=== PATIENT | female | born 1995 | race American Indian/Alaskan Native ===

== ENCOUNTER 2021-02-03 23:12 | Emergency (ER) | payer SELFPAY ==
--- NOTE | 2021-02-03 23:44 | Event Note ---
ED Screening Note ED Screening Note: 25-year-old female with past medical history of recurrent gastritis for the last 2-year presents emerged department complaining of another flareup. States she is having some some vomiting, diarrhea and nausea and seeks treatment. No hemoptysis, no hematemesis no hematochezia no fever, chills, sweats. This initial assessment/diagnostic orders/clinical plan/treatment(s) is/are subject to change based on patients health status, clinical progression and re- assessment by fellow clinical providers in the ED. Further treatment and workup at subsequent clinical providers discretion. Patient/guardian urged not to elope from the ED as their condition may be serious if not clinically assessed and managed. Initial orders include: Labs
[2021-02-03] MEDS ORDERED: ONDANSETRON 4 MG ODT TAB PO ONE (23:45)
[2021-02-03] MEDS ORDERED: HYOSCYAMINE SUBL 0.125 MG TAB SL ONE (23:45)
[2021-02-04] MEDS ORDERED: DICYCLOMINE 20 MG/2 ML INJ IM ONE (00:35)
[2021-02-04] MEDS ORDERED: SODIUM CHLORIDE 0.9% 1000 ML 1,000 ML IV ONE (00:35)
[2021-02-04] MEDS ORDERED: ONDANSETRON 4 MG/2 ML INJ IV ONE ×2 (00:35→02:26)
[2021-02-04] MEDS ORDERED: FAMOTIDINE 20 MG/2 ML INJ IV ONE (00:35)
[2021-02-04 01:08] LABS: Alanine Aminotransferase 10 units/L (7-56); BUN/Creatinine Ratio 18; Bilirubin,Direct 0.2 mg/dL (0-0.2); Blood Urea Nitrogen 11 mg/dL (7-17); Calcium 9.1 mg/dL (8.4-10.2)
[2021-02-04 01:09] LABS: Albumin 4.5 g/dL (3.9-5)
[2021-02-04 01:23] LABS: Hematocrit 36.2 % (30.3-42.9); Hemoglobin 11.5 gm/dl (10.1-14.3); Mean Corpuscular HGB Conc 32 % (30-34); Mean Corpuscular Volume 86 fl (79-97)
[2021-02-04 01:24] LABS: Lymphocytes # (Auto) 0.3 K/mm3 (1.2-5.4); Lymphocytes % (Auto) 2.2 % (13.4-35.0); Mean Platelet Volume 10.1 fl (6-12); Monocytes # (Auto) 0.4 K/mm3 (0.0-0.8); Monocytes % (Auto) 2.9 % (0.0-7.3); Platelet Count 284 K/mm3 (140-440); Red Cell Distribution Width 13.8 % (13.2-15.2)
[2021-02-04] MEDS ORDERED: METOCLOPRAMIDE 10 MG/2 ML INJ IV ONE (01:41)
[2021-02-04] MEDS ORDERED: D5W/0.9% NACL 1,000 ML IV SCH (02:00)
--- NOTE | 2021-02-04 02:01 | Emergency Department Report ---
ED Abdominal Pain HPI - General Chief Complaint: Abdominal Pain Stated Complaint: EMESIS Time Seen by Provider: 02/04/21 00:27 Source: patient Mode of arrival: Ambulatory Limitations: No Limitations - History of Present Illness Initial Comments: Patient is a 25-year-old F Pan[place]ian female who is presenting with nausea vomiting diarrhea. Patient states she has had episodes of nausea vomiting in the past and was diagnosed with gastritis. Patient states for the last 24 hours been unable to keep anything down. She has some crampy diffuse abdominal pain especially when she is about to vomit. Patient denies cough cold congestion fevers or chills. Severity scale (0 -10): 6 Quality: cramping Consistency: intermittent Improves With: nothing Worsens With: nothing Associated Symptoms: nausea, vomiting, diarrhea, chills. denies: fever, constipation, dysuria, hematemesis, hematochezia, melena, hematuria, anorexia - Related Data Previous Rx's Medication Instructions Recorded Last Taken Type Ondansetron [Zofran Odt] 4 mg PO Q8HR #10 tab.rapdis 02/04/21 Unknown Rx Allergies Allergy/AdvReac Type Severity Reaction Status Date / Time No Known Allergies Allergy Verified 02/04/21 01:44 ED Review of Systems ROS: Stated complaint: EMESIS Other details as noted in HPI Comment: All other systems reviewed and negative ED Past Medical Hx - Past Medical History Previous Medical History?: Yes Additional medical history: gastritis - Surgical History Past Surgical History?: Yes Additional Surgical History: left hand - Social History Smoking Status: Current Every Day Smoker Substance Use Type: None - Medications Home Medications: Home Medications Medication Instructions Recorded Confirmed Last Taken Type Ondansetron [Zofran Odt] 4 mg PO Q8HR #10 tab.rapdis 02/04/21 Unknown Rx ED Physical Exam - General Limitations: No Limitations General appearance: alert, in no apparent distress - Head Head exam: Present: atraumatic, normocephalic - Eye Eye exam: Present: normal appearance - ENT ENT exam: Present: mucous membranes moist - Neck Neck exam: Present: normal inspection - Respiratory Respiratory exam: Present: normal lung sounds bilaterally. Absent: respiratory distress, wheezes, rales - Cardiovascular Cardiovascular Exam: Present: regular rate, normal rhythm, normal heart sounds. Absent: systolic murmur, diastolic murmur, rubs, gallop - GI/Abdominal GI/Abdominal exam: Present: soft, tenderness (difuse), normal bowel sounds. Absent: distended, guarding, rebound, rigid - Extremities Exam Extremities exam: Present: normal inspection - Back Exam Back exam: Present: normal inspection - Neurological Exam Neurological exam: Present: alert, oriented X3 - Psychiatric Psychiatric exam: Present: normal affect, normal mood - Skin Skin exam: Present: warm, dry, intact, normal color. Absent: rash ED Course Vital Signs 02/03/21 02/04/21 02/04/21 23:39 01:12 01:15 Temperature 97.8 F Pulse Rate 71 53 L 56 L Respiratory 20 12 10 L Rate Blood Pressure 161/106 144/68 O2 Sat by Pulse 99 100 100 Oximetry 02/04/21 02/04/21 02/04/21 01:31 01:45 02:01 Temperature Pulse Rate 60 74 61 Respiratory 16 15 22 Rate Blood Pressure 144/68 124/80 124/80 O2 Sat by Pulse 100 100 100 Oximetry 02/04/21 02/04/21 02/04/21 02:25 02:31 02:45 Temperature Pulse Rate 74 66 68 Respiratory 12 29 H 26 H Rate Blood Pressure 138/58 153/72 O2 Sat by Pulse 98 98 98 Oximetry 02/04/21 03:01 Temperature Pulse Rate 73 Respiratory 15 Rate Blood Pressure 124/80 O2 Sat by Pulse 100 Oximetry - Reevaluation(s) Reevaluation #1: 02/04/21 02:00 After the patient received approximately 500 cc of fluid and Zofran Pepcid she seemed to be resting comfortably. I woke the patient up to ask her to straighten out her arm to let the fluids going a little bit fast and she began vomiting uncontrollably for approximately 2 minutes straight. Patient given a dose of Reglan and because the patient was is still complaining of some abdominal discomfort CT of the abdomen pelvis has been ordered. White count is slightly elevated but likely secondary demargination. Will rule out surgical conditions needing intervention with CT. Reevaluation #2: 02/04/21 02:54 Patient admits to marijuana use and likely has cyclical vomiting syndrome. ED Medical Decision Making - Lab Data Result diagrams: 02/03/21 23:51 02/03/21 23:51 Lab Results 03/25/21 03/25/21 03/25/21 Range/Units 23:51 23:51 23:51 WBC 12.6 H (4.5-11.0) K/mm3 RBC 4.20 (3.65-5.03) M/mm3 Hgb 11.5 (10.1-14.3) gm/dl Hct 36.2 (30.3-42.9) % MCV 86 (79-97) fl MCH 28 (28-32) pg MCHC 32 (30-34) % RDW 13.8 (13.2-15.2) % Plt Count 284 (140-440) K/mm3 Lymph % (Auto) 2.2 L (13.4-35.0) % [place] % (Auto) 2.9 (0.0-7.3) % Eos % (Auto) 0.0 (0.0-4.3) % Baso % (Auto) 0.0 (0.0-1.8) % Lymph # (Auto) 0.3 L (1.2-5.4) K/mm3 [place] # (Auto) 0.4 (0.0-0.8) K/mm3 Eos # (Auto) 0.0 (0.0-0.4) K/mm3 Baso # (Auto) 0.0 (0.0-0.1) K/mm3 Add Manual Diff Complete Seg Neutrophils % 94.9 H (40.0-70.0) % Seg Neutrophils # 12.0 H (1.8-7.7) K/mm3 Sodium 138 (137-145) mmol/L Potassium 3.9 (3.6-5.0) mmol/L Chloride 102.4 (98-107) mmol/L Carbon Dioxide 19 L (22-30) mmol/L Anion Gap 21 mmol/L BUN 11 (7-17) mg/dL Creatinine 0.6 (0.6-1.2) mg/dL Estimated GFR > 60 ml/min BUN/Creatinine Ratio 18 % Glucose 155 H (65-100) mg/dL Calcium 9.1 (8.4-10.2) mg/dL Total Bilirubin 0.50 (0.1-1.2) mg/dL Direct Bilirubin 0.2 (0-0.2) mg/dL Indirect Bilirubin 0.3 mg/dL AST 14 (5-40) units/L ALT 10 (7-56) units/L Alkaline Phosphatase 79 (35-129) units/L Total Protein 8.5 H (6.3-8.2) g/dL Albumin 4.5 (3.9-5) g/dL Albumin/Globulin Ratio 1.1 % Lipase 12 L (13-60) units/L HCG, Qual Negative (Negative) Urinalysis showed no discrete trace ketones small amount of blood but no evidence of any infection. - Radiology Data [facility] [address] [id number] Cat Scan Report Signed Patient: ZARINA TAVAREZ MR#: [id number] : 1995 Acct:[id number] Age/Sex: 25 / F ADM Date: 02/03/21 Loc: ED Attending Dr: Ordering Physician: HECTOR PORTER MD Date of Service: 02/04/21 Procedure(s): CT abdomen pelvis w con Accession Number(s): [id number] cc: HECTOR PORTER MD CT ABDOMEN AND PELVIS WITH CONTRAST INDICATION: Patient complains of diffuse abd pain with nausea and vomiting. History of gastritis TECHNIQUE: Axial CT images were obtained through the abdomen and pelvis after 100 cc IV contrast. All CT scans at this location are performed using CT dose reduction for ALARA by means of automated exposure control. COMPARISON: None available. FINDINGS: LOWER CHEST: No significant abnormality. LIVER: No significant abnormality. GALLBLADDER: No significant abnormality. BILE DUCTS: No significant abnormality. PANCREAS: No significant abnormality. SPLEEN: No significant abnormality. ADRENALS: No significant abnormality. RIGHT KIDNEY and URETER: No significant abnormality. LEFT KIDNEY and URETER: No significant abnormality. STOMACH and SMALL BOWEL: No significant abnormality. COLON: No significant abnormality. APPENDIX: Normal PERITONEUM: No free fluid. No free air. No fluid collection. LYMPH NODES: No significant adenopathy. AORTA and ARTERIES: No significant abnormality. IVC and VEINS: No significant abnormality. URINARY BLADDER: No significant abnormality. REPRODUCTIVE ORGANS: No significant abnormality. ADDITIONAL FINDINGS: None. SKELETAL SYSTEM: No significant abnormality. IMPRESSION: 1. No significant abnormality. Signer Name: Michele Quarles MD Signed: 02/04/2021 2:44 AM Workstation Name: [id number] Transcribed By: TL Dictated By: Michele Quarles MD Electronically Authenticated By: Michele Quarles MD Signed Date/Time: 02/04/21 0244 - Medical Decision Making Patient's been cautioned to stop her marijuana use. States that this is something it was occurring regularly while she was living in [place]. She has already been told that she needs to stop smoking marijuana and this is likely the cause of her nausea and vomiting. Patient did calm down some after receiving Geodon. Critical care attestation.: If time is entered above; I have spent that time in minutes in the direct care of this critically ill patient, excluding procedure time. ED Disposition Clinical Impression: Cyclic vomiting syndrome, Marijuana abuse Disposition: DC-01 TO HOME OR SELFCARE Is pt being admited?: No Does the pt Need Aspirin: No Condition: Stable Instructions: Abdominal Pain (ED), Nausea and Vomiting, Adult, [id number], Cannabinoid Hyperemesis Syndrome Referrals: [facility] [Provider Group] - 3-5 Days Time of Disposition: 04:03
[2021-02-04] MEDS ORDERED: ZIPRASIDONE MESYLATE 20 MG VIAL IM ONE (02:38)
--- NOTE | 2021-02-04 02:49 | Cat Scan Report ---
CT ABDOMEN AND PELVIS WITH CONTRAST INDICATION: Patient complains of diffuse abd pain with nausea and vomiting. History of gastritis TECHNIQUE: Axial CT images were obtained through the abdomen and pelvis after 100 cc IV contrast. All CT scans at this location are performed using CT dose reduction for ALARA by means of automated exposure contr ol. COMPARISON: None available. FINDINGS: LOWER CHEST: No significant abnormality. LIVER: No significant abnormality. GALLBLADDER: No significant abnormality. BILE DUCTS: No significant abnormality. PANCREAS: No significant abnormality. SPLEEN: No significant abnormality. ADRENALS: No significant abnormality. RIGHT KIDNEY and URETER: No significant abnormality. LEFT KIDNEY and URETER: No significant abnormality. STOMACH and SMALL BOWEL: No significant abnormality. COLON: No significant abnormality. APPENDIX: Normal PERITONEUM: No free fluid. No free air. No fluid collection. LYMPH NODES: No significant adenopathy. AORTA and ARTERIES: No significant abnormality. IVC and VEINS: No significant abnormality. URINARY BLADDER: No significant abnormality. REPRODUCTIVE ORGANS: No significant abnormality. ADDITIONAL FINDINGS: None. SKELETAL SYSTEM: No significant abnormality. IMPRESSION: 1. No significant abnormality. Signer Name: Michele Quarles MD Signed: 02/04/2021 2:44 AM Workstation Name: [id number]
[2021-02-04 04:19] VITALS: BP 141/75
[2021-02-04 05:37] LABS: Color,Urine Yellow (Yellow)
[2021-02-04 05:38] LABS: Bilirubin,Urine Negative (Negative); Blood,Urine Small (Negative); Urobilinogen,Urine < 2.0 mg/dL (<2.0)
[2021-02-04 05:39] LABS: Mucus,Urine 1+ /HPF
== END 2021-02-04 04:15 | disposition home or self-care (01) ==
LOC: ED 23:12
DX: R11.15 Cyclical vomiting syndrome unrelated to migraine (principal); F12.10 Cannabis abuse, uncomplicated; Z79.899 Other long term (current) drug therapy
CPT/HCPCS: 36415; 74177; 80048; 80076; 81001; 83690; 84703; 85025; 96361; 96372; 96374; 96375; 96376; 99284; J0500; J2405; J2765; J3486; J7030; J7042; Q9967; Q0162

== ENCOUNTER 2021-02-05 21:29 | Emergency (ER) | payer OTHER ==
[2021-02-05] MEDS ORDERED: diphenhydrAMINE 50 MG/ML VIAL IV ONE (22:04)
[2021-02-05] MEDS ORDERED: FAMOTIDINE 20 MG/2 ML INJ IV ONE (22:04)
[2021-02-05] MEDS ORDERED: SODIUM CHLORIDE 0.9% 1000 ML 1,000 ML IV ONE (22:04)
[2021-02-05] MEDS ORDERED: METOCLOPRAMIDE 10 MG/2 ML INJ IV ONE (22:04)
[2021-02-05 22:08] LABS: Basophils # (Auto) 0.1 K/mm3 (0.0-0.1); Basophils % (Auto) 0.7 % (0.0-1.8); Hematocrit 38.7 % (30.3-42.9); Hemoglobin 12.9 gm/dl (10.1-14.3); Lymphocytes # (Auto) 1.9 K/mm3 (1.2-5.4); Lymphocytes % (Auto) 15.5 % (13.4-35.0); Mean Corpuscular HGB Conc 33 % (30-34); Mean Corpuscular Volume 85 fl (79-97); Monocytes # (Auto) 1.2 K/mm3 (0.0-0.8); Monocytes % (Auto) 10.2 % (0.0-7.3); Platelet Count 340 K/mm3 (140-440); Red Blood Count 4.55 M/mm3 (3.65-5.03); Red Cell Distribution Width 14.2 % (13.2-15.2)
[2021-02-05 22:23] LABS: Alanine Aminotransferase 10 units/L (7-56); Albumin 4.7 g/dL (3.9-5); BUN/Creatinine Ratio 15; Blood Urea Nitrogen 12 mg/dL (7-17); Calcium 9.7 mg/dL (8.4-10.2); Hemolysis Index 27
[2021-02-05] MEDS ORDERED: POTASSIUM CHLORIDE ER 20 MEQ TAB PO ONE (23:11)
[2021-02-06] MEDS ORDERED: METOCLOPRAMIDE 10 MG/2 ML INJ IV ONE ×2 (01:30→04:18)
[2021-02-06] MEDS ORDERED: POTASSIUM CHLORIDE ER 20 MEQ TAB PO ONE (01:30)
[2021-02-06] MEDS ORDERED: SODIUM CHLORIDE 0.9% 1000 ML 1,000 ML IV ONE ×2 (01:30→02:28)
[2021-02-06] MEDS ORDERED: diphenhydrAMINE 50 MG/ML VIAL IV ONE ×2 (01:30→04:18)
[2021-02-06] MEDS ORDERED: FAMOTIDINE 20 MG/2 ML INJ IV ONE (01:30)
[2021-02-06 03:00] LABS: Bacteria,Urine 1+ /HPF (Negative); Bilirubin,Urine NEG (Negative); Blood,Urine SM (Negative); Color,Urine Amber (Yellow); Mucus,Urine 3+ /HPF; Urobilinogen,Urine < 2.0 mg/dL (<2.0)
[2021-02-06 03:03] LABS: Protein,Urine >500 mg/dL (Negative)
--- NOTE | 2021-02-06 04:21 | Emergency Department Report ---
ED N/V/D HPI - General Chief complaint: Nausea/Vomiting/Diarrhea Stated complaint: GIULIANA;VOMITING Source: patient Mode of arrival: Ambulatory Limitations: No Limitations - History of Present Illness Initial comments: Patient is a 25-year-old -[place] female with no past medical history presents to the ED with complaint of acute onset persistent intractable nausea and vomiting for the last 4 days, worse in the last 2 days. Patient states that she was initially evaluated in this ED 3 days ago and was extensively worked up, and was subsequently discharged home on Zofran ODT sublingual tablets prescriptions. Patient states that she has been taking this medication with no relief and that she has not been able to keep anything down for the last 3 days. Patient denies fever, chills, diarrhea, dysuria, urinary frequency and urgency, chest pain, shortness of breath, headache, dizziness, syncope, vaginal bleeding, vaginal discharge, cough, sore throat, nasal and sinus congestion or abdominal pain and diarrhea. MD complaint: nausea, vomiting -: Sudden, days(s) (4) Description of Vomiting: food contents, watery, bilious Associated Abdominal Pain: No Location: diffuse Radiation: none Severity: moderate Pain Scale: 2 Quality: aching, dull Consistency: intermittent Improves with: none Worsens with: eating, vomiting Context: possible food poisoning Associated Symptoms: denies other symptoms, loss of appetite, malaise, nausea/vomiting. denies: myalgias, chest pain, cough, diaphoresis, headaches, rash, dysuria, shortness of breath, syncope, weakness, other - Related Data Previous Rx's Medication Instructions Recorded Last Taken Type Ondansetron [Zofran Odt] 4 mg PO Q8HR #10 tab.rapdis 02/04/21 Unknown Rx Famotidine [Pepcid] 20 mg PO BID #30 tablet 02/06/21 Unknown Rx Promethazine [Phenergan] 25 mg IL Q6HR PRN #20 supp.rect 02/06/21 Unknown Rx Allergies Allergy/AdvReac Type Severity Reaction Status Date / Time No Known Allergies Allergy Verified 02/04/21 01:44 ED Review of Systems ROS: Stated complaint: GIULIANA;VOMITING Other details as noted in HPI Constitutional: denies: chills, fever Eyes: denies: eye pain, eye discharge, vision change ENT: denies: ear pain, throat pain Respiratory: denies: cough, shortness of breath, wheezing Cardiovascular: denies: chest pain, palpitations Endocrine: no symptoms reported Gastrointestinal: nausea, vomiting. denies: abdominal pain, diarrhea Genitourinary: denies: urgency, dysuria, discharge Musculoskeletal: denies: back pain, joint swelling, arthralgia Skin: denies: rash, lesions Neurological: denies: headache, weakness, paresthesias Psychiatric: denies: anxiety, depression Hematological/Lymphatic: denies: easy bleeding, easy bruising ED Past Medical Hx - Past Medical History Previous Medical History?: Yes Additional medical history: gastritis, Anemia - Surgical History Past Surgical History?: Yes Additional Surgical History: left hand skin graft - Social History Smoking Status: Never Smoker Substance Use Type: None - Medications Home Medications: Home Medications Medication Instructions Recorded Confirmed Last Taken Type Ondansetron [Zofran Odt] 4 mg PO Q8HR #10 tab.rapdis 02/04/21 Unknown Rx Famotidine [Pepcid] 20 mg PO BID #30 tablet 02/06/21 Unknown Rx Promethazine [Phenergan] 25 mg IL Q6HR PRN #20 supp.rect 02/06/21 Unknown Rx ED Physical Exam - General Limitations: No Limitations General appearance: alert, in no apparent distress - Head Head exam: Present: atraumatic, normocephalic, normal inspection - Eye Eye exam: Present: normal appearance, PERRL, EOMI Pupils: Present: normal accommodation - ENT ENT exam: Present: normal exam, normal orophraynx, mucous membranes moist, TM's normal bilaterally, normal external ear exam - Neck Neck exam: Present: normal inspection, full ROM - Respiratory Respiratory exam: Present: normal lung sounds bilaterally. Absent: respiratory distress, wheezes, rales, stridor, chest wall tenderness, accessory muscle use, decreased breath sounds - Cardiovascular Cardiovascular Exam: Present: normal rhythm, tachycardia, normal heart sounds. Absent: systolic murmur, diastolic murmur, rubs, gallop - GI/Abdominal GI/Abdominal exam: Present: soft, normal bowel sounds. Absent: tenderness, guarding, hyperactive bowel sounds, hypoactive bowel sounds, organomegaly - Extremities Exam Extremities exam: Present: normal inspection, full ROM, normal capillary refill - Back Exam Back exam: Present: normal inspection, full ROM. Absent: tenderness, CVA tenderness (R), CVA tenderness (L), muscle spasm, paraspinal tenderness, vertebral tenderness - Neurological Exam Neurological exam: Present: alert, oriented X3, CN II-XII intact, normal gait, reflexes normal - Psychiatric Psychiatric exam: Present: normal affect, normal mood - Skin Skin exam: Present: warm, dry, intact, normal color. Absent: rash ED Course Vital Signs 02/05/21 02/06/21 21:33 04:36 Temperature 98.4 F Pulse Rate 118 H 72 Respiratory 18 20 Rate Blood Pressure 143/93 O2 Sat by Pulse 94 100 Oximetry ED Medical Decision Making - Lab Data Result diagrams: 02/05/21 21:46 02/05/21 21:46 - Medical Decision Making This is a 25-year-old -[place] female with no past medical history presents to the ED with complaint of acute onset persistent intractable nausea and vomiting for the last 4 days, worse in the last 2 days. Patient states that she was initially evaluated in this ED 3 days ago and was extensively worked up, and was subsequently discharged home on Zofran ODT sublingual tablets prescriptions. Patient states that she has been taking this medication with no relief and that she has not been able to keep anything down for the last 3 days. In the ED, patient is alert and oriented x3 and is not in distress. Patient is however tachycardic and afebrile in triage. Lab test results were reviewed and showed acute leukocytosis of 12,000, mild hypokalemia of 3.2 mmol/L. The rest of the lab test results were nonactionable including urinalysis. Patient had an unremarkable abdomen pelvis CT scan with contrast report 3 days ago during her initial ED visit with similar symptoms. Patient was therefore treated in the ED with antiemetics, antacids and pain medications, and also given normal saline 2 L IV bolus x1. On reevaluation, patient nausea and vomiting resolved with medication. Patient drank orange juice in the ED and also drank some water, and passed oral fluid challenge. Patient was therefore discharged home and advised to maintain a clear liquid diet for 12 to 24 hours, while taking the previously prescribed Zofran 4 mg ODT sublingual tablets as needed for nausea and vomiting. Patient was also given a prescription of Phenergan 25 mg suppository capsules to be used in case she is unable to tolerate Zofran. Patient was otherwise advised return to the ED immediately if symptoms get worse, otherwise follow-up with her primary care physician in 3 to 5 days for reevaluation. - Differential Diagnosis Gastroenteritis; GERD; gastritis; UTI; dehydration; viral syndrome Critical care attestation.: If time is entered above; I have spent that time in minutes in the direct care of this critically ill patient, excluding procedure time. ED Disposition Clinical Impression: Intractable nausea and vomiting, Viral gastroenteritis Disposition: TO HOME OR SELFCARE Is pt being admited?: No Does the pt Need Aspirin: No Condition: Stable Instructions: Viral Gastroenteritis, Adult, [id number], Nausea and Vomiting, Adult, [id number] Additional Instructions: All lab test results were reviewed and are all nonactionable. Therefore maintain a clear liquid diet for 12 to 24 hours, drink plenty of fluids, take medication as needed for nausea and vomiting and follow-up with your primary care physician in 3 to 5 days for reevaluation or return to the ED immediately if symptoms get worse. Prescriptions: Famotidine [Pepcid] 20 mg PO BID #30 tablet Promethazine [Phenergan] 25 mg IL Q6HR PRN #20 supp.rect PRN Reason: Nausea Referrals: [facility] [Provider Group] - 3-5 Days Time of Disposition: 04:27 Print Language: SALVADOREAN
[2021-02-06 06:07] VITALS: BP 132/88
== END 2021-02-06 05:00 | disposition home or self-care (01) ==
LOC: ED 21:29
DX: A08.4 Viral intestinal infection, unspecified (principal); Z79.899 Other long term (current) drug therapy
CPT/HCPCS: 36415; 80053; 81001; 83690; 84703; 85025; 96361; 96374; 96375; 96376; 99283; J1200; J2765; J7030

== ENCOUNTER 2021-02-08 12:08 | Observation (INO) | payer OTHER ==
[2021-02-08] MEDS ORDERED: SODIUM CHLORIDE 0.9% 1000 ML IV SOLN IV ONE (14:12)
--- NOTE | 2021-02-08 14:12 | Event Note ---
ED Screening Note ED Screening Note: Patient presents for nausea and vomiting that began approximately a week ago Patient states today that she was having a headache and she lay down She states that she was advised by her fianc that she had a seizure and that she was shaking and clenching her jaw and she states that she bit her tongue She denies any vision changes, numbness, unilateral weakness Past medical history of anemia She denies any prior history of hypertension She has not seen a primary care doctor in multiple years No allergies to medications She endorses previous marijuana use Denies alcohol use Patient has elevated temperature, heart rate This initial assessment/diagnostic orders/clinical plan/treatment(s) is/are subj ect to change based on patients health status, clinical progression and re- assessment by fellow clinical providers in the ED. Further treatment and workup at subsequent clinical providers discretion. Patient/guardian urged not to elope from the ED as their condition may be serious if not clinically assessed and managed. Initial orders include: Sepsis protocol initiated charge nurse aaliyha notified pt needs room MARYAM
[2021-02-08] MEDS ORDERED: ACETAMINOPHEN 325 MG TAB PO ONE ×2 (14:13→18:48)
[2021-02-08 14:44] LABS: Hematocrit 41.5 % (30.3-42.9); Hemoglobin 13.2 gm/dl (10.1-14.3); Red Blood Count 4.82 M/mm3 (3.65-5.03)
[2021-02-08 14:45] LABS: Basophils % (Auto) 0.3 % (0.0-1.8); Eosinophils % (Auto) 0.1 % (0.0-4.3); Lymphocytes # (Auto) 1.2 K/mm3 (1.2-5.4); Lymphocytes % (Auto) 7.2 % (13.4-35.0); Mean Corpuscular HGB Conc 32 % (30-34); Mean Corpuscular Volume 86 fl (79-97); Monocytes # (Auto) 1.1 K/mm3 (0.0-0.8); Monocytes % (Auto) 6.7 % (0.0-7.3); Platelet Count 296 K/mm3 (140-440); Red Cell Distribution Width 14.2 % (13.2-15.2)
[2021-02-08 14:52] LABS: Alanine Aminotransferase 32 units/L (7-56); Blood Urea Nitrogen 7 mg/dL (7-17); Calcium 9.2 mg/dL (8.4-10.2); Hemolysis Index 53
[2021-02-08 14:57] LABS: BUN/Creatinine Ratio 10
--- NOTE | 2021-02-08 15:07 | XRay Report ---
CHEST 1 VIEW INDICATION: suspected sepsis. COMPARISON: None FINDINGS: Support devices: None. Heart: Within normal limits. Lungs/Pleura: No acute air space or interstitial disease. Additional findings: None. IMPRESSION: No acute findings. Signer Name: Armando Momin Jr, MD Signed: 02/08/2021 3:02 PM Workstation Name: [id number]
--- NOTE | 2021-02-08 15:42 | Cat Scan Report ---
CT head/brain wo con INDICATION: seizure, headache. TECHNIQUE: Routine CT head. All CT scans at this location are performed using CT dose reduction for A GERRI by means of automated exposure control. COMPARISON: None. FINDINGS: Image quality is slightly degraded by artifact Intracranial: Andrew-white matter differentiation is maintained. No intracranial hemorrhage. No extra a xial collection. No hydrocephalus. No herniation. Mild asymmetry of the sylvian fissures. Sinuses: Paranasal sinuses and mastoid air cells are essentially clear. Orbits: Globes are intact. Calvarium: No acute fracture. IMPRESSION: 1. No acute intracranial abnormality. Signer Name: Hayden Ferraro MD Signed: 02/08/2021 3:38 PM Workstation Name: [id number]
[2021-02-08] MEDS ORDERED: LIDOCAINE VISCOUS 2% 15 ML ORAL LIQD PO ONE (17:48)
[2021-02-08] MEDS ORDERED: METOCLOPRAMIDE 10 MG/2 ML INJ IV ONE (17:50)
[2021-02-08] MEDS ORDERED: diphenhydrAMINE 50 MG/ML VIAL IV ONE (17:50)
--- NOTE | 2021-02-08 17:53 | Emergency Department Report ---
ED General Adult HPI - General Chief complaint: Seizure Stated complaint: SEIZURE/VOMITING/HEADACHE PUI?: Yes Time Seen by Provider: 02/08/21 14:06 Source: patient, RN notes reviewed, old records reviewed Mode of arrival: Wheelchair Limitations: No Limitations - History of Present Illness Initial comments: The patient was evaluated in the emergency department for symptoms described in the history of present illness. He/she was evaluated in the context of the global COVID-19 pandemic, which necessitated consideration that the patient might be at risk for infection with the virus that causes COVID-19. Institutional protocols and algorithms that pertain to the evaluation of patients at risk for COVID-19 are in a state of rapid change based on information released by regulatory bodies including the CDC and federal and [facility] organizations. These policies and algorithms were followed during the patient's care in the emergency department. Please note that these policies, procedures and recommendations changed on a rapid basis. During the entire history and physical examination, I had on complete personal protective equipment. Patient is a 25-year-old female. She is not known to myself previously. She was diagnosed with COVID-19 in July 2020, and reports that she was admitted to the [facility] for the same, for intractable nausea and vomiting and symptomatic Covid. She reports that she is not and she has not delivered or given in the past 6 weeks. This is the patient's third visit in the past month. The patient is a recreational marijuana user as well. The patient presents to the emergency room today with a complaint of "my boyfriend thinks I had a seizure." Patient has had a few visits over the past few days for abdominal cramping, nausea and vomiting. She had a CT scan of the abdomen pelvis recently, which was negative for acute findings, and she has been discharged with supportive care. Patient reports that she was at home, laying down, sleeping, when her significant other felt like she was shaking, bit her tongue, and woke the patient up. The patient has a mild headache, but denies sudden or thunderclap headache, neck pain, sore throat, chest pain, dysuria, muscle aches. She denies loss of taste and smell. The patient has never had a convulsion or seizure before. She does not carry a diagnosis of epileptiform disorder or seizure disorder. She has "gas" in her abdomen, and mild nausea with no vomiting, but no neck pain, no neck stiffness, no sore throat. Patient states that she has had strep in the past, and states "it does not feel like I have strep." The patient denies dysuria. She is also recently had a few urinalyses at this hospital, which were not consistent with infectious pathology. The patient's main complaint at this time is wanting to have ice chips, and she would like some pain medication for her tongue bite. -: Sudden Improves with: other (Convulsive activity is now resolved. Does not have exacerbating or relieving factors. Abdominal cramping and "gas" sensation, intermittent.) - Related Data Previous Rx's Medication Instructions Recorded Last Taken Type Ondansetron [Zofran Odt] 4 mg PO Q8HR #10 tab.rapdis 02/04/21 Unknown Rx Famotidine [Pepcid] 20 mg PO BID #30 tablet 02/06/21 Unknown Rx Promethazine [Phenergan] 25 mg KS Q6HR PRN #20 supp.rect 02/06/21 Unknown Rx Allergies Allergy/AdvReac Type Severity Reaction Status Date / Time No Known Allergies Allergy Verified 02/08/21 13:56 ED Review of Systems ROS: Stated complaint: SEIZURE/VOMITING/HEADACHE Other details as noted in HPI Constitutional: fever, other (Denies loss of taste and smell) Eyes: denies: eye discharge Respiratory: denies: cough, shortness of breath Cardiovascular: denies: chest pain Gastrointestinal: nausea Genitourinary: denies: dysuria Musculoskeletal: denies: myalgia Neurological: headache. denies: weakness, numbness, paresthesias, confusion Psychiatric: anxiety Hematological/Lymphatic: denies: easy bleeding ED Past Medical Hx - Past Medical History Additional medical history: gastritis, Anemia - Surgical History Additional Surgical History: left hand skin graft - Social History Smoking Status: Never Smoker Substance Use Type: Marijuana - Medications Home Medications: Home Medications Medication Instructions Recorded Confirmed Last Taken Type Ondansetron [Zofran Odt] 4 mg PO Q8HR #10 tab.rapdis 02/04/21 02/09/21 Unknown Rx Famotidine [Pepcid] 20 mg PO BID #30 tablet 02/06/21 02/09/21 Unknown Rx Promethazine [Phenergan] 25 mg KS Q6HR PRN #20 supp.rect 02/06/21 02/09/21 Unknown Rx ED Physical Exam - General Limitations: No Limitations General appearance: alert, anxious, obese - Head Head exam: Present: atraumatic, normocephalic - Eye Eye exam: Present: normal appearance, PERRL, EOMI, other (Visual acuity intact to finger counting, color perception, reading at a close distance). Absent: nystagmus - ENT ENT exam: Present: normal exam, normal orophraynx, mucous membranes moist, normal external ear exam, other (Superficial bite noted to the lateral aspect of the tongue. There is no stridor. There is no dysphonia.) - Neck Neck exam: Present: normal inspection, full ROM. Absent: tenderness, meningismus - Respiratory Respiratory exam: Present: normal lung sounds bilaterally. Absent: respiratory distress, wheezes, rales, rhonchi, stridor, decreased breath sounds - Cardiovascular Cardiovascular Exam: Present: regular rate, normal rhythm, tachycardia, normal heart sounds. Absent: bradycardia, irregular rhythm, systolic murmur, diastolic murmur, rubs, gallop - GI/Abdominal GI/Abdominal exam: Present: soft, normal bowel sounds. Absent: distended, tenderness, guarding, rebound, rigid, pulsatile mass - Extremities Exam Extremities exam: Present: normal inspection, full ROM, other (2+ pulses noted in the bilateral upper and lower extremities. There is no palpable cord. negative Homans sign. Muscular compartments are soft. The pelvis is stable.). Absent: pedal edema, calf tenderness - Back Exam Back exam: Present: normal inspection, full ROM. Absent: tenderness, CVA tende rness (R), CVA tenderness (L), paraspinal tenderness, vertebral tenderness - Neurological Exam Neurological exam: Present: alert, oriented X3, other (No facial droop. Tongue midline. Extraocular movements intact bilaterally. Facial sensation intact to light touch in V1, V2, V3 distribution bilaterally. 5 and a 5 strength in 4 extremities. Sensation intact to light touch in 4 extremities.). Absent: motor sensory deficit - Psychiatric Psychiatric exam: Present: anxious - Skin Skin exam: Present: warm, dry, intact, normal color. Absent: rash ED Course Vital Signs 02/08/21 02/08/21 02/08/21 13:56 19:00 19:04 Temperature 101.6 F H Pulse Rate 135 H 120 H Pulse Rate [ Right Brachial] Respiratory 20 24 Rate Blood Pressure 164/142 Blood Pressure 178/113 [Left] O2 Sat by Pulse 97 100 99 Oximetry 02/08/21 02/08/21 02/08/21 19:30 20:04 20:06 Temperature 98.2 F Pulse Rate 93 H Pulse Rate [ Right Brachial] Respiratory 24 16 Rate Blood Pressure 178/113 Blood Pressure [Left] O2 Sat by Pulse 100 97 Oximetry 02/08/21 02/08/21 02/08/21 20:07 20:30 21:00 Temperature Pulse Rate 87 85 90 Pulse Rate [ Right Brachial] Respiratory 16 22 22 Rate Blood Pressure 164/124 164/124 Blood Pressure 164/113 [Left] O2 Sat by Pulse 98 100 99 Oximetry 02/08/21 02/08/21 02/08/21 21:23 21:30 22:00 Temperature Pulse Rate 95 H 91 H Pulse Rate [ 84 Right Brachial] Respiratory 20 26 H 25 H Rate Blood Pressure 168/123 168/123 Blood Pressure [Left] O2 Sat by Pulse 96 99 99 Oximetry 02/08/21 02/08/21 02/08/21 22:30 23:00 23:10 Temperature Pulse Rate 86 90 Pulse Rate [ Right Brachial] Respiratory 25 H 24 24 Rate Blood Pressure 153/92 172/107 179/107 Blood Pressure [Left] O2 Sat by Pulse 98 100 100 Oximetry 02/08/21 02/08/21 02/08/21 23:20 23:30 23:40 Temperature Pulse Rate 102 H 95 H 90 Pulse Rate [ Right Brachial] Respiratory 24 25 H 23 Rate Blood Pressure 179/107 179/107 179/107 Blood Pressure [Left] O2 Sat by Pulse 99 99 100 Oximetry 02/08/21 02/09/21 02/09/21 23:50 00:00 00:10 Temperature Pulse Rate 84 91 H 113 H Pulse Rate [ Right Brachial] Respiratory 24 24 18 Rate Blood Pressure 179/107 179/107 174/107 Blood Pressure [Left] O2 Sat by Pulse 100 99 99 Oximetry 02/09/21 02/09/21 02/09/21 00:20 00:30 00:40 Temperature Pulse Rate 101 H 102 H 94 H Pulse Rate [ Right Brachial] Respiratory 21 22 22 Rate Blood Pressure 174/107 174/107 174/107 Blood Pressure [Left] O2 Sat by Pulse 100 100 100 Oximetry 02/09/21 02/09/21 02/09/21 00:50 01:00 01:10 Temperature Pulse Rate 91 H 88 87 Pulse Rate [ Right Brachial] Respiratory 21 22 19 Rate Blood Pressure 174/107 174/107 135/110 Blood Pressure [Left] O2 Sat by Pulse 100 100 100 Oximetry - Reevaluation(s) Reevaluation #1: 02/08/21 17:56 Differential diagnosis, including but not limited to: Seizure, pseudoseizure, seizure secondary to marijuana consumption, viral syndrome, COVID-19, strep, cannabinoid hyperemesis syndrome, dehydration, electrolyte derangement Assessment and plan: 25-year-old female, clinically sober with a GCS of 15, without meningeal signs, no neck pain or neck stiffness, sent to the emergency room at the request of her significant other because of convulsive event today. Patient has had fairly extensive laboratory and radiology diagnostic work-up at this hospital within the past week or so. She had a CT scan of her abdomen pelvis which was negative for acute findings, and her laboratory analyses are fairly unremarkable. Hypertension is chronic, patient specifically states that she has not delivered or given in the past 6 weeks. preeclampsia is therefore very unlikely and not possible. Recently had urinalyses which were fairly unremarkable and the patient denies urinary symptoms. Based off of the current history and physical, do not see indication for spinal tap. Febrile illness reviewed and appreciated, in conjunction with tachycardia. May be recurrence of Covid, viral syndrome, strep, or secondary to convulsive event, which may be secondary to cannabis consumption. Patient currently presents as alert, oriented, sober, free from distracting injury, and exhibits decision-making capacity. We did recommend admission to the medical service for supportive care, fluids, further diagnostic work-up and evaluation, as this is the patient's third visit. At the moment, she does not want to be admitted. She is amenable to IV fluids, supportive care, and symptomatic therapy. Risks of leaving AGAINST MEDICAL ADVICE, including , disability, paralysis, permanent loss of quality of life are discussed with the patient, who verbalized understanding, articulated understanding in her own words, but has stated that she really does not want to be admitted to this hospital. Patient currently speaking on her cell phone, anxious, but otherwise not in significant distress. Start IV fluids, start on diaphoresis, check rapid strep, give topical lidocaine for tongue bite, replete potassium, and reassess Maintain on isolation precautions 02/08/21 18:58 Patient amenable to admission and hospitalization. Hospital physician, Dr. Karie Kemp Patient remains awake, alert, oriented, not encephalopathic, without meningeal signs, DRAWING TENDER infection is very unlikely. Medical decision makin-year-old female, febrile, tachycardic, meets criteria for systemic inflammatory response syndrome, now presenting with first- time convulsive event, questionable seizure, this is her third visit to this department in 3 days, not able to follow-up as an outpatient, to be admitted for supportive care, further diagnostic work-up. Dr Karie Kemp to admit ED Medical Decision Making - Lab Data Result diagrams: 02/09/21 15:49 02/09/21 15:49 Vital Signs 02/08/21 13:56 Temperature 101.6 F H Pulse Rate 135 H Respiratory 20 Rate Blood Pressure 164/142 O2 Sat by Pulse 97 Oximetry Lab Results 02/08/21 02/08/21 02/08/21 Range/Units 14:16 14:16 14:16 WBC 16.2 H (4.5-11.0) K/mm3 RBC 4.82 (3.65-5.03) M/mm3 Hgb 13.2 (10.1-14.3) gm/dl Hct 41.5 (30.3-42.9) % MCV 86 (79-97) fl MCH 28 (28-32) pg MCHC 32 (30-34) % RDW 14.2 (13.2-15.2) % Plt Count 296 (140-440) K/mm3 Lymph % (Auto) 7.2 L (13.4-35.0) % [place] % (Auto) 6.7 (0.0-7.3) % Eos % (Auto) 0.1 (0.0-4.3) % Baso % (Auto) 0.3 (0.0-1.8) % Lymph # (Auto) 1.2 (1.2-5.4) K/mm3 [place] # (Auto) 1.1 H (0.0-0.8) K/mm3 Eos # (Auto) 0.0 (0.0-0.4) K/mm3 Baso # (Auto) 0.0 (0.0-0.1) K/mm3 Seg Neutrophils % 85.7 H (40.0-70.0) % Seg Neutrophils # 13.9 H (1.8-7.7) K/mm3 VBG pH (7.320-7.420) Sodium 131 L D (137-145) mmol/L Potassium 3.3 L (3.6-5.0) mmol/L Chloride 94.5 L (98-107) mmol/L Carbon Dioxide 24 (22-30) mmol/L Anion Gap 16 mmol/L BUN 7 (7-17) mg/dL Creatinine 0.7 (0.6-1.2) mg/dL Estimated GFR > 60 ml/min BUN/Creatinine Ratio 10 % Glucose 96 (65-100) mg/dL Calcium 9.2 (8.4-10.2) mg/dL Magnesium 2.00 (1.7-2.3) mg/dL Total Bilirubin 1.10 (0.1-1.2) mg/dL AST 35 (5-40) units/L ALT 32 (7-56) units/L Alkaline Phosphatase 73 (35-129) units/L Total Creatine Kinase 94 (30-135) units/L Total Protein 8.2 (6.3-8.2) g/dL Albumin 4.0 (3.9-5) g/dL Albumin/Globulin Ratio 1.0 % HCG, Qual Negative (Negative) Salicylates (2.8-20.0) mg/dL Acetaminophen (10.0-30.0) ug/mL Plasma/Serum Alcohol (0-0.07) % 02/08/21 02/08/21 02/08/21 Range/Units 14:16 14:16 14:16 WBC (4.5-11.0) K/mm3 RBC (3.65-5.03) M/mm3 Hgb (10.1-14.3) gm/dl Hct (30.3-42.9) % MCV (79-97) fl MCH (28-32) pg MCHC (30-34) % RDW (13.2-15.2) % Plt Count (140-440) K/mm3 Lymph % (Auto) (13.4-35.0) % [place] % (Auto) (0.0-7.3) % Eos % (Auto) (0.0-4.3) % Baso % (Auto) (0.0-1.8) % Lymph # (Auto) (1.2-5.4) K/mm3 [place] # (Auto) (0.0-0.8) K/mm3 Eos # (Auto) (0.0-0.4) K/mm3 Baso # (Auto) (0.0-0.1) K/mm3 Seg Neutrophils % (40.0-70.0) % Seg Neutrophils # (1.8-7.7) K/mm3 VBG pH (7.320-7.420) Sodium (137-145) mmol/L Potassium (3.6-5.0) mmol/L Chloride (98-107) mmol/L Carbon Dioxide (22-30) mmol/L Anion Gap mmol/L BUN (7-17) mg/dL Creatinine (0.6-1.2) mg/dL Estimated GFR ml/min BUN/Creatinine Ratio % Glucose (65-100) mg/dL Calcium (8.4-10.2) mg/dL Magnesium (1.7-2.3) mg/dL Total Bilirubin (0.1-1.2) mg/dL AST (5-40) units/L ALT (7-56) units/L Alkaline Phosphatase (35-129) units/L Total Creatine Kinase (30-135) units/L Total Protein (6.3-8.2) g/dL Albumin (3.9-5) g/dL Albumin/Globulin Ratio % HCG, Qual (Negative) Salicylates < 0.3 L (2.8-20.0) mg/dL Acetaminophen 5.0 L (10.0-30.0) ug/mL Plasma/Serum Alcohol < 0.01 (0-0.07) % 02/08/21 Range/Units 14:29 WBC (4.5-11.0) K/mm3 RBC (3.65-5.03) M/mm3 Hgb (10.1-14.3) gm/dl Hct (30.3-42.9) % MCV (79-97) fl MCH (28-32) pg MCHC (30-34) % RDW (13.2-15.2) % Plt Count (140-440) K/mm3 Lymph % (Auto) (13.4-35.0) % [place] % (Auto) (0.0-7.3) % Eos % (Auto) (0.0-4.3) % Baso % (Auto) (0.0-1.8) % Lymph # (Auto) (1.2-5.4) K/mm3 [place] # (Auto) (0.0-0.8) K/mm3 Eos # (Auto) (0.0-0.4) K/mm3 Baso # (Auto) (0.0-0.1) K/mm3 Seg Neutrophils % (40.0-70.0) % Seg Neutrophils # (1.8-7.7) K/mm3 VBG pH 7.488 H (7.320-7.420) Sodium (137-145) mmol/L Potassium (3.6-5.0) mmol/L Chloride (98-107) mmol/L Carbon Dioxide (22-30) mmol/L Anion Gap mmol/L BUN (7-17) mg/dL Creatinine (0.6-1.2) mg/dL Estimated GFR ml/min BUN/Creatinine Ratio % Glucose (65-100) mg/dL Calcium (8.4-10.2) mg/dL Magnesium (1.7-2.3) mg/dL Total Bilirubin (0.1-1.2) mg/dL AST (5-40) units/L ALT (7-56) units/L Alkaline Phosphatase (35-129) units/L Total Creatine Kinase (30-135) units/L Total Protein (6.3-8.2) g/dL Albumin (3.9-5) g/dL Albumin/Globulin Ratio % HCG, Qual (Negative) Salicylates (2.8-20.0) mg/dL Acetaminophen (10.0-30.0) ug/mL Plasma/Serum Alcohol (0-0.07) % - EKG Data -: EKG Interpreted by Ga EKG shows normal: sinus rhythm Rate: tachycardia - EKG Data 02/08/21 17:55 EKG is interpreted at 14: 30 Sinus rhythm, tachycardia, 116 bpm. Left axis deviation, incomplete right bundle branch block, QTC prolonged. This is an abnormal EKG, borderline left anterior fascicular block, the EKG is not a STEMI. - Radiology Data Radiology results: pending, report reviewed, image reviewed CT head/brain wo con INDICATION: seizure, headache. TECHNIQUE: Routine CT head. All CT scans at this location are performed using CT dose reduction for ALARA by means of automated exposure control. COMPARISON: None. FINDINGS: Image quality is slightly degraded by artifact Intracranial: Andrew-white matter differentiation is maintained. No intracranial hemorrhage. No extra axial collection. No hydrocephalus. No herniation. Mild asymmetry of the sylvian fissures. Sinuses: Paranasal sinuses and mastoid air cells are essentially clear. Orbits: Globes are intact. Calvarium: No acute fracture. IMPRESSION: 1. No acute intracranial abnormality. Signer Name: Hayden Ferraro MD Signed: 02/08/2021 2:38 PM Workstation Name: [id number] CT ABDOMEN AND PELVIS WITH CONTRAST INDICATION: Patient complains of diffuse abd pain with nausea and vomiting. History of gastritis TECHNIQUE: Axial CT images were obtained through the abdomen and pelvis after 100 cc IV contrast. All CT scans at this location are performed using CT dose reduction for ALARA by means of automated exposure control. COMPARISON: None available. FINDINGS: LOWER CHEST: No significant abnormality. LIVER: No significant abnormality. GALLBLADDER: No significant abnormality. BILE DUCTS: No significant abnormality. PANCREAS: No significant abnormality. SPLEEN: No significant abnormality. ADRENALS: No significant abnormality. RIGHT KIDNEY and URETER: No significant abnormality. LEFT KIDNEY and URETER: No significant abnormality. STOMACH and SMALL BOWEL: No significant abnormality. COLON: No significant abnormality. APPENDIX: Normal PERITONEUM: No free fluid. No free air. No fluid collection. LYMPH NODES: No significant adenopathy. AORTA and ARTERIES: No significant abnormality. IVC and VEINS: No significant abnormality. URINARY BLADDER: No significant abnormality. REPRODUCTIVE ORGANS: No significant abnormality. ADDITIONAL FINDINGS: None. SKELETAL SYSTEM: No significant abnormality. IMPRESSION: 1. No significant abnormality. Signer Name: Michele Quarles MD Signed: 02/04/2021 1:44 AM Workstation Name: [id number] CHEST 1 VIEW INDICATION: suspected sepsis. COMPARISON: None FINDINGS: Support devices: None. Heart: Within normal limits. Lungs/Pleura: No acute air space or interstitial disease. Additional findings: None. IMPRESSION: No acute findings. Signer Name: Armando Momin Jr, MD Signed: 02/08/2021 2:02 PM Workst ation Name: [id number] Critical care attestation.: If time is entered above; I have spent that time in minutes in the direct care of this critically ill patient, excluding procedure time. ED Disposition Clinical Impression: Acute febrile illness, History of convulsions, Hypokalemia, History of marijuana use, SIRS (systemic inflammatory response syndrome) Disposition: OP ADMIT IP TO THIS HOSP Is pt being admited?: Yes Does the pt Need Aspirin: No Condition: Stable
[2021-02-08] MEDS ORDERED: POTASSIUM CHLORIDE ER 20 MEQ TAB PO ONE (17:54)
[2021-02-08] MEDS ORDERED: SODIUM CHLORIDE 0.9% 1000 ML 3,000 ML ONE (18:06)
[2021-02-08] MEDS ORDERED: cefTRIAXone/NS 1 GM/50 ML 1 GM/50 ML BAG IV ONE (18:57)
[2021-02-08] MEDS ORDERED: D5W/0.45% NACL 1,000 ML IV SCH (19:00)
--- NOTE | 2021-02-08 21:48 | History and Physical Report ---
History of Present Illness Date of examination: 02/08/21 Date of admission: 02/08/21 19:00 Chief complaint: Persistent vomiting since a.m. Questionable seizure this a.m. History of present illness: 24-year-old -[place] female with obesity and past medical history of Covid 19 in July 2020 comes in for persistent nausea and vomiting. Patient uses marijuana on a recreational basis. Her boyfriend thinks she had a seizure. Patient at least had 3 visits in the month of January. Patient recently had a abdominal CAT scan which was negative. As per her boyfriend patient had a tonic-clonic seizure but is not sure of it. Patient also has a headache. No neck stiffness. No altered sensorium. - Past Medical History Additional medical history: gastritis, Anemia - Surgical History Additional Surgical History: left hand skin graft - Social History Smoking Status: Never Smoker Substance Use Type: Marijuana - Medications Home Medications: Home Medications Medication Instructions Recorded Confirmed Last Taken Type Ondansetron [Zofran Odt] 4 mg PO Q8HR #10 tab.rapdis 02/04/21 Unknown Rx Famotidine [Pepcid] 20 mg PO BID #30 tablet 02/06/21 Unknown Rx Promethazine [Phenergan] 25 mg [place] Q6HR PRN #20 supp.rect 02/06/21 Unknown Rx Review of Systems ROS: Stated complaint: SEIZURE/VOMITING/HEADACHE Other details as noted in HPI Constitutional: fever, other (Denies loss of taste and smell) Eyes: denies: eye discharge Respiratory: denies: cough, shortness of breath Cardiovascular: denies: chest pain Gastrointestinal: nausea Genitourinary: denies: dysuria Musculoskeletal: denies: myalgia Neurological: headache. denies: weakness, numbness, paresthesias, confusion Psychiatric: anxiety Hematological/Lymphatic: denies: easy bleeding Medications and Allergies Allergies Allergy/AdvReac Type Severity Reaction Status Date / Time No Known Allergies Allergy Verified 02/08/21 13:56 Home Medications Medication Instructions Recorded Confirmed Last Taken Type Ondansetron [Zofran Odt] 4 mg PO Q8HR #10 tab.rapdis 02/04/21 Unknown Rx Famotidine [Pepcid] 20 mg PO BID #30 tablet 02/06/21 Unknown Rx Promethazine [Phenergan] 25 mg [place] Q6HR PRN #20 supp.rect 02/06/21 Unknown Rx Active Meds: Active Medications Dextrose/Sodium Chloride (D5/0.45ns) 1,000 mls @ 120 mls/hr IV DIRECT TEN Exam - Constitutional Vitals: Temp Pulse Resp BP Pulse Ox 98.2 F 87 16 164/113 98 02/08/21 20:06 02/08/21 20:07 02/08/21 20:07 02/08/21 20:07 02/08/21 20:07 General appearance: Present: no acute distress, well-nourished - EENT Eyes: Present: PERRL ENT: hearing intact, clear oral mucosa - Neck Neck: Present: supple, normal ROM - Respiratory Respiratory effort: normal Respiratory: bilateral: CTA - Cardiovascular Heart rate: 78 Rhythm: regular Heart Sounds: Present: S1 & S2. Absent: rub, click - Extremities Extremities: pulses symmetrical, No edema Peripheral Pulses: within normal limits - Abdominal General gastrointestinal: Present: soft, non-tender, non-distended, normal bowel sounds Female genitourinary: Present: normal - Rectal Rectal Exam: deferred - Integumentary Integumentary: Present: clear, warm, dry - Musculoskeletal Musculoskeletal: strength equal bilaterally, other (No altered sensorium) - Psychiatric Psychiatric: appropriate mood/affect, intact judgment & insight - Neurologic Neurologic: CNII-XII intact, moves all extremities - Allied Health Allied health notes reviewed: nursing, case management Results - Labs CBC & Chem 7: 02/08/21 14:16 02/08/21 14:16 Labs: Laboratory Last Values WBC 16.2 K/mm3 (4.5-11.0) H 02/08/21 14:16 RBC 4.82 M/mm3 (3.65-5.03) 02/08/21 14:16 Hgb 13.2 gm/dl (10.1-14.3) 02/08/21 14:16 Hct 41.5 % (30.3-42.9) 02/08/21 14:16 MCV 86 fl (79-97) 02/08/21 14:16 MCH 28 pg (28-32) 02/08/21 14:16 MCHC 32 % (30-34) 02/08/21 14:16 RDW 14.2 % (13.2-15.2) 02/08/21 14:16 Plt Count 296 K/mm3 (140-440) 02/08/21 14:16 Lymph % (Auto) 7.2 % (13.4-35.0) L 02/08/21 14:16 [place] % (Auto) 6.7 % (0.0-7.3) 02/08/21 14:16 Eos % (Auto) 0.1 % (0.0-4.3) 02/08/21 14:16 Baso % (Auto) 0.3 % (0.0-1.8) 02/08/21 14:16 Lymph # (Auto) 1.2 K/mm3 (1.2-5.4) 02/08/21 14:16 [place] # (Auto) 1.1 K/mm3 (0.0-0.8) H 02/08/21 14:16 Eos # (Auto) 0.0 K/mm3 (0.0-0.4) 02/08/21 14:16 Baso # (Auto) 0.0 K/mm3 (0.0-0.1) 02/08/21 14:16 Seg Neutrophils % 85.7 % (40.0-70.0) H 02/08/21 14:16 Seg Neutrophils # 13.9 K/mm3 (1.8-7.7) H 02/08/21 14:16 VBG pH 7.488 (7.320-7.420) H 02/08/21 14:29 Sodium 131 mmol/L (137-145) L D 02/08/21 14:16 Potassium 3.3 mmol/L (3.6-5.0) L 02/08/21 14:16 Chloride 94.5 mmol/L (98-107) L 02/08/21 14:16 Carbon Dioxide 24 mmol/L (22-30) 02/08/21 14:16 Anion Gap 16 mmol/L 02/08/21 14:16 BUN 7 mg/dL (7-17) 02/08/21 14:16 Creatinine 0.7 mg/dL (0.6-1.2) 02/08/21 14:16 Estimated GFR > 60 ml/min 02/08/21 14:16 BUN/Creatinine Ratio 10 % 02/08/21 14:16 Glucose 96 mg/dL (65-100) 02/08/21 14:16 Lactic Acid 2.20 mmol/L (0.7-2.0) H* 02/08/21 19:02 Calcium 9.2 mg/dL (8.4-10.2) 02/08/21 14:16 Magnesium 2.00 mg/dL (1.7-2.3) 02/08/21 14:16 Total Bilirubin 1.10 mg/dL (0.1-1.2) 02/08/21 14:16 AST 35 units/L (5-40) 02/08/21 14:16 ALT 32 units/L (7-56) 02/08/21 14:16 Alkaline Phosphatase 73 units/L (35-129) 02/08/21 14:16 Total Creatine Kinase 94 units/L (30-135) 02/08/21 14:16 Total Protein 8.2 g/dL (6.3-8.2) 02/08/21 14:16 Albumin 4.0 g/dL (3.9-5) 02/08/21 14:16 Albumin/Globulin Ratio 1.0 % 02/08/21 14:16 HCG, Qual Negative (Negative) 02/08/21 14:16 Salicylates < 0.3 mg/dL (2.8-20.0) L 02/08/21 14:16 Acetaminophen 5.0 ug/mL (10.0-30.0) L 02/08/21 14:16 Plasma/Serum Alcohol < 0.01 % (0-0.07) 02/08/21 14:16 Group A Strep Rapid Negative (Negative) 02/08/21 Unknown Microbiology: Microbiology 02/08/21 18:57 Peripheral/Venous Blood Culture - Preliminary Culture in Progress 02/08/21 19:00 Peripheral/Venous Blood Culture - Preliminary Culture in Progress - Imaging and Cardiology EKG: report reviewed (Sinus rhythm no acute ST-T wave changes) CT Scan - head: report reviewed (No acute findings) Assessment and Plan Advance Directives: Yes (Full code) VTE prophylaxis?: Chemical Plan of care discussed with patient/family: Yes - Patient Problems (1) Hypertensive emergency Current Visit: Yes Status: Acute Plan to address problem: Patient initiated on valsartan 160 every 12 and Coreg 12.5 every 12 Hydralazine 10 mg every 3 hours as needed for BP more than 160/100 blood pressure (2) Seizure disorder Current Visit: Yes Status: Acute Plan to address problem: Questionable seizure We will defer to neurology Neurology consulted (3) SIRS (systemic inflammatory response syndrome) Current Visit: Yes Status: Acute Plan to address problem: Patient has a high white count and tachycardia Consistent with Sirs (4) Leukocytosis (leucocytosis) Current Visit: Yes Status: Acute Plan to address problem: Probably demargination from stress and vomiting Patient initiated on IV Rocephin empirically. (5) Cannabis hyperemesis syndrome concurrent with and due to cannabis abuse Current Visit: Yes Status: Acute Plan to address problem: Symptomatic treatment for now IV fluids IV Zofran IV Reglan Patient counseled about marijuana use (6) Hyponatremia Current Visit: Yes Status: Acute Plan to address problem: IV normal saline for now Probably secondary to vomiting (7) Hypokalemia Current Visit: Yes Status: Acute Plan to address problem: Supplemented (8) DVT prophylaxis Current Visit: Yes Status: Acute Plan to address problem: Heparin and GI prophylaxis
[2021-02-08] MEDS ORDERED: METOCLOPRAMIDE 10 MG/2 ML INJ IV PRN (22:03)
[2021-02-08] MEDS ORDERED: PROMETHAZINE 25 MG RECT SUPP PR PRN (22:03)
[2021-02-08] MEDS ORDERED: MAGNESIUM HYDROXIDE (MOM) ORAL LIQD UDC PO PRN (22:03)
[2021-02-08] MEDS ORDERED: ACETAMINOPHEN 325 MG TAB PO PRN (22:03)
[2021-02-08] MEDS ORDERED: MORPHINE 2 MG/1 ML INJ IV PRN (22:03)
[2021-02-08] MEDS ORDERED: ONDANSETRON 4 MG/2 ML INJ IV PRN (22:03)
[2021-02-08] MEDS ORDERED: oxyCODONE /ACETAMINOPHEN 5-325MG TAB PO PRN (22:03)
[2021-02-08] MEDS ORDERED: D5W/0.9% NACL 1,000 ML IV SCH (23:00)
[2021-02-08] MEDS ORDERED: carvediloL 12.5 MG TAB PO SCH (23:00)
[2021-02-08] MEDS ORDERED: FAMOTIDINE 20 MG/2 ML INJ IV SCH (23:00)
[2021-02-08] MEDS ORDERED: VALSARTAN 160MG TAB PO SCH (23:00)
[2021-02-09] MEDS ORDERED: cefTRIAXone/NS 2 GM/100 ML 2 GM/100 ML BAG IV SCH (10:00)
[2021-02-09 11:12] LABS: Bilirubin,Urine NEG (Negative); Blood,Urine NEG (Negative); Color,Urine Yellow (Yellow); Mucus,Urine FEW /HPF; Protein,Urine <15 mg/dL mg/dL (Negative)
--- NOTE | 2021-02-09 11:23 | Consultation ---
History of Present Illness Consult date: 02/09/21 Reason for Consult: Seizure Chief complaint: Seizure History of present illness: 25 yo female with no significant medical history except noted hx of intractable nausea/emesis that coincides with her menses, presents with a possible episode of witnessed tonic clonic seizure. Patient is not aware of the episode. Denies any hx of seizure d/o. Notes she is stressed from being new to [place] as she just moved from [place] to this state. Notes a hx of COVID-19 in 07/2020 but with negative covid-19 tests since that time period. Currently she notes she is back to her baseline. Notes taking iron pills for her anemia secondary to her heavy menses. Past History Past Medical History: anemia Medications and Allergies Allergies Allergy/AdvReac Type Severity Reaction Status Date / Time No Known Allergies Allergy Verified 02/08/21 13:56 Home Medications Medication Instructions Recorded Confirmed Last Taken Type Ondansetron [Zofran Odt] 4 mg PO Q8HR #10 tab.rapdis 02/04/21 Unknown Rx Famotidine [Pepcid] 20 mg PO BID #30 tablet 02/06/21 Unknown Rx Promethazine [Phenergan] 25 mg [place] Q6HR PRN #20 supp.rect 02/06/21 Unknown Rx Active Meds: Active Medications Acetaminophen (Acetaminophen 325 Mg Tab) 650 mg PO Q4H PRN PRN Reason: Pain MILD(1-3)/Fever >100.5/GUERRA Carvedilol (Carvedilol 12.5 Mg Tab) 12.5 mg PO BID [facility] Last Admin: 02/09/21 09:18 Dose: 12.5 mg Documented by: Famotidine (Famotidine 20 Mg/2 Ml Inj) 20 mg IV BID TEN Last Admin: 02/09/21 09:19 Dose: 20 mg Documented by: Dextrose/Sodium Chloride (D5ns) 1,000 mls @ 125 mls/hr IV DIRECT TEN Last Admin: 02/09/21 09:18 Dose: 125 mls/hr Documented by: Ceftriaxone Sodium (Rocephin/Ns 2 Gm/100 Ml) 2 gm in 100 mls @ 200 mls/hr IV Q24HR TEN; Protocol Last Admin: 02/09/21 09:17 Dose: 200 mls/hr Documented by: Magnesium Hydroxide (Magnesium Hydroxide (Mom) Oral Liqd Udc) 30 ml PO Q4H PRN PRN Reason: Constipation Metoclopramide HCl (Metoclopramide 10 Mg/2 Ml Inj) 10 mg IV Q6H PRN PRN Reason: Nausea And Vomiting Morphine Sulfate (Morphine 2 Mg/1 Ml Inj) 2 mg IV Q4H PRN PRN Reason: Pain, Moderate (4-6) Ondansetron HCl (Ondansetron 4 Mg/2 Ml Inj) 4 mg IV Q3H PRN PRN Reason: Nausea And Vomiting Oxycodone/Acetaminophen (Oxycodone /Acetaminophen 5-325mg Tab) 1 tab PO Q6H PRN PRN Reason: Pain, Moderate (4-6) Promethazine HCl (Promethazine 25 Mg Rect Supp) 25 mg [place] Q6H PRN PRN Reason: N/V IF NPO AND NO IV ACCESS Sodium Chloride (Sodium Chloride 0.9% 10 Ml Flush Syringe) 10 ml IV BID [facility] Last Admin: 02/09/21 09:31 Dose: 10 ml Documented by: Sodium Chloride (Sodium Chloride 0.9% 10 Ml Flush Syringe) 10 ml IV PRN PRN PRN Reason: LINE FLUSH Valsartan (Valsartan 160mg Tab) 160 mg PO Q12HR [facility] Last Admin: 02/09/21 09:18 Dose: 160 mg Documented by: Review of Systems All systems: negative (except as per HPI;) Physical Examination - Vital Signs Vital Signs: Vital Signs Temp Pulse Resp BP Pulse Ox 101.6 F H 135 H 20 164/142 97 02/08/21 13:56 02/08/21 13:56 02/08/21 13:56 02/08/21 13:56 02/08/21 13:56 - Physical Exam Narrative exam: Gen: nad, well-nourished; Head: normocephalic; Eyes: no gaze deviation; no ptosis; ENT: normal vocalization; CVS: warm and well-perfused; Pulm: no respiratory distress; GI: appears non-distended, protuberant; Ext: no cyanosis or edema at distal extremities; Skin: no acute rash or hives at distal extremities; Heme: no pathologic bruising or ecchymosis at distal extremities; Neuro: alert, oriented to name, age, month, year, surroundings, no dysarthria, no aphasia, CN 2 - PERRL, visual cortez intact, CN 3, 4, 6 - EOMI, CN 5 - facial sensation symmetric to light touch, CN 7 - facial movement symmetric, CN 8 - hearing grossly intact, CN 9, 10 - uvula midline, CN 11 - shrug symmetric, CN 12 - tongue midline; Motor - at least 4+/5 in all exts; Sensory - light touch symmetric, Cerebellar - fnf /hts intact, Gait - deferred secondary to seizure precautions; Results - Laboratory Findings CBC and BMP: 02/08/21 14:16 02/08/21 14:16 Abnormal Lab Findings: Abnormal Labs 02/08/21 02/08/21 02/08/21 14:16 14:16 14:16 WBC 16.2 H Lymph % (Auto) 7.2 L [place] # (Auto) 1.1 H Seg Neutrophils % 85.7 H Seg Neutrophils # 13.9 H VBG pH Sodium 131 L D Potassium 3.3 L Chloride 94.5 L Hemoglobin A1c Lactic Acid Salicylates < 0.3 L Acetaminophen 02/08/21 02/08/21 02/08/21 14:16 14:29 19:02 WBC Lymph % (Auto) [place] # (Auto) Seg Neutrophils % Seg Neutrophils # VBG pH 7.488 H Sodium Potassium Chloride Hemoglobin A1c Lactic Acid 2.20 H* Salicylates Acetaminophen 5.0 L 02/09/21 02/09/21 07:53 07:53 WBC Lymph % (Auto) [place] # (Auto) Seg Neutrophils % Seg Neutrophils # VBG pH Sodium Potassium Chloride Hemoglobin A1c < 4.0 L Lactic Acid 0.60 L Salicylates Acetaminophen Assessment and Plan 25 yo female with anemia (associated with heavy menses), hx of covid-19 in 08/02, presents with possible new onset seizure in the setting of borderline hyponatremia with noted hx of nausea/emesis. 1. Seizure - confirm with MR Brain w/ wo contrast, MRA Head w/o contrast, and EEG as patient presentation is concerning for an ictal event with no obvious triggers other than the borderline hyponatremia; correction of hyponatremia per primary team. 2. Marijuana dependence / abuse - outpatient evaluation by pcp. 3. Anemia - pe rprimary team. 4. If MRI Brain and EEG are unremarkable, no further workup indicated at prese nt. Esau Lanier MD Neurology
--- NOTE | 2021-02-09 15:35 | Magnetic Resonance Report ---
MR brain wo/w con, MR MRA/MRV head wo con INDICATION / CLINICAL INFORMATION: seizure. TECHNIQUE: Multiplanar, multisequence MRI of the brain. Routine MRA of the head. 3-D/MIP reformats postprocessed. Percentage stenosis is determined by direct quantitative measurements of distal internal carotid artery diameter compared with normal reference segments or by criteria similar to NASCET where applicable. COMPARISON: CT head 02/08/2021 FINDINGS: BRAIN: Intracranial: There is small quantity of T2 signal hyperintensity in the bilateral occipital lobe and left cerebellar white matter. No restricted diffusion. No abnormal postcontrast enhancement. Bilater al hippocampi are symmetric without abnormal T2 signal hyperintensity. Architecture is preserved. No restricted diffusion. No hemorrhage. Ventricular caliber is normal. No extra-axial collection. No ma ss. No herniation. Orbits: No significant abnormality of visualized orbits. Sinuses/mastoid: Small left maxillary sinus mucosal retention cyst. No significant abnormality of vis ualized sinuses and mastoid air cells. Additional findings: None. MRA HEAD: Intracranial vertebral arteries: No occlusion or significant stenosis. Basilar artery: No occlusion or significant stenosis. Posterior cerebral arteries: No occlusion or significant stenosis. Intracranial internal carotid arteries: No occlusion or significant stenosis. Anterior cerebral arteries: No occlusion or significant stenosis. Middle cerebral arteries: No occlusion or significant stenosis. No aneurysm. Additional findings: None. IMPRESSION: 1. MRI Brain: Findings consistent with posterior reversible encephalopathy syndrome. 2. MRA Head: No occlusion or hemodynamically significant stenosis. Signer Name: Hayden Ferraro MD Signed: 02/09/2021 3:30 PM Workstation Name: [email or web address]
[2021-02-09 16:15] LABS: Hematocrit 35.2 % (30.3-42.9); Hemoglobin 11.6 gm/dl (10.1-14.3); Mean Corpuscular HGB Conc 33 % (30-34); Mean Corpuscular Volume 86 fl (79-97); Platelet Count 273 K/mm3 (140-440); Red Blood Count 4.09 M/mm3 (3.65-5.03); Red Cell Distribution Width 13.8 % (13.2-15.2)
[2021-02-09 16:35] LABS: Blood Urea Nitrogen 4 mg/dL (7-17); Calcium 8.8 mg/dL (8.4-10.2); Hemolysis Index 15
[2021-02-09 16:46] LABS: BUN/Creatinine Ratio 6
--- NOTE | 2021-02-09 17:18 | Progress Note ---
Assessment and Plan (1) Hypertensive emergency with PRES syndrome Current Visit: Yes Status: Acute Plan to address problem: Patient initiated on valsartan 160 every 12 and Coreg 12.5 every 12 Hydralazine 10 mg every 3 hours as needed for BP more than 160/100 blood pressure (2) Seizure disorder, new onset Current Visit: Yes Status: Acute Plan to address problem: Questionable seizure We will defer to neurology Neurology consulted (3) SIRS (systemic inflammatory response syndrome) Current Visit: Yes Status: Acute Plan to address problem: Patient has a high white count and tachycardia Consistent with Sirs (4) Leukocytosis (leucocytosis) Current Visit: Yes Status: Acute Plan to address problem: Probably demargination from stress and vomiting Patient initiated on IV Rocephin empirically. (5) Cannabis hyperemesis syndrome concurrent with and due to cannabis abuse Current Visit: Yes Status: Acute Plan to address problem: Symptomatic treatment for now IV fluids IV Zofran IV Reglan Patient counseled about marijuana use (6) Hyponatremia Current Visit: Yes Status: Acute Plan to address problem: IV normal saline for now Probably secondary to vomiting (7) Hypokalemia Current Visit: Yes Status: Acute Plan to address problem: Supplemented (8) DVT prophylaxis Current Visit: Yes Status: Acute Plan to address problem: Heparin and GI prophylaxis Subjective Date of service: 02/09/21 Objective - Constitutional Vitals: Vital Signs - 12hr 02/09/21 02/09/21 02/09/21 09:18 09:23 12:13 Temperature 98.0 F Pulse Rate 86 82 Pulse Rate [ 78 From Monitor] Respiratory 20 22 Rate Blood Pressure 153/101 140/84 O2 Sat by Pulse 97 99 Oximetry - Labs CBC & Chem 7: 02/09/21 15:49 02/09/21 15:49 Labs: Abnormal lab results 02/08/21 02/09/21 02/09/21 Range/Units 19:02 07:53 07:53 WBC (4.5-11.0) K/mm3 Sodium (137-145) mmol/L Chloride (98-107) mmol/L BUN (7-17) mg/dL Hemoglobin A1c < 4.0 L (4-6) % Lactic Acid 2.20 H* 0.60 L (0.7-2.0) mmol/L 02/09/21 02/09/21 Range/Units 15:49 15:49 WBC 16.2 H (4.5-11.0) K/mm3 Sodium 134 L (137-145) mmol/L Chloride 97.5 L (98-107) mmol/L BUN 4 L (7-17) mg/dL Hemoglobin A1c (4-6) % Lactic Acid (0.7-2.0) mmol/L
[2021-02-09 18:05] VITALS: BP 127/75
[2021-02-09 18:18] LABS: Amphetamine Screen,Urine Negative; Benzodiazepines Screen,Urine Negative; Cocaine Screen,Urine Negative; Methadone Screen,Urine Negative; Opiate Screen,Urine Negative
[2021-02-09 18:50] LABS: Cannabinoid Screen,Urine Positive
--- NOTE | 2021-02-10 14:14 | Progress Note ---
Assessment and Plan 25 yo female with anemia (associated with heavy menses), hx of covid-19 in 08/02, presents with possible new onset seizure in the setting of borderline hyponatremia with noted hx of nausea/emesis. 1. PRES - treatment per primary team as this is most commmonly secondary to uncontrolled htn, and also seen with renal, liver, and medication/drug side effects. 2. Seizure - EEG pending; treat underlying PRES to prevent seizure activity. 2. Marijuana dependence / abuse - outpatient evaluation by pcp. 3. Anemia - per primary team. 4. If EEG reveals epileptiform discharges, recommend Keppra 500 mg po bid and followup with Neurology in 4 to 6 weeks w/ driving/climbing/swimming/self-cooking/self-bathing/superivsory/heavy machinery restrictions also in place. Esau Lanier MD Neurology Subjective Date of service: 02/10/21 Interval history: MRI reveals PRES. Objective - Laboratory Findings CBC and BMP: 02/09/21 15:49 02/09/21 15:49 Abnormal Lab Findings: Abnormal Labs 02/08/21 02/08/21 02/08/21 14:16 14:16 14:16 WBC 16.2 H Lymph % (Auto) 7.[address] [place] # (Auto) 1.1 H Seg Neutrophils % 85.7 H Seg Neutrophils # 13.9 H VBG pH Sodium 131 L D Potassium 3.3 L Chloride 94.5 L BUN Hemoglobin A1c Lactic Acid Salicylates < 0.3 L Acetaminophen 02/08/21 02/08/21 02/08/21 14:16 14:29 19:02 WBC Lymph % (Auto) [place] # (Auto) Seg Neutrophils % Seg Neutrophils # VBG pH 7.488 H Sodium Potassium Chloride BUN Hemoglobin A1c Lactic Acid 2.20 H* Salicylates Acetaminophen 5.0 L 02/09/21 02/09/21 02/09/21 07:53 07:53 15:49 WBC 16.2 H Lymph % (Auto) [place] # (Auto) Seg Neutrophils % Seg Neutrophils # VBG pH Sodium Potassium Chloride BUN Hemoglobin A1c < 4.0 L Lactic Acid 0.60 L Salicylates Acetaminophen 02/09/21 15:49 WBC Lymph % (Auto) [place] # (Auto) Seg Neutrophils % Seg Neutrophils # VBG pH Sodium 134 L Potassium Chloride 97.5 L BUN 4 L Hemoglobin A1c Lactic Acid Salicylates Acetaminophen
--- NOTE | 2021-02-11 10:28 | Electrocardiograph Report ---
[facility] Test Date: 2021-02-08 Test Time: 14:25:16 Pat Name: ZARINA TAVAREZ Department: Room: A379 1 Gender: F Fancy Packer: ERUM : 1995 Requested By: RADHIKA DICKINSON Order Number: [id number] Reading MD: Eddy Alexis Measurements Intervals [place] Rate: 116 P: 71 IA: 123 QRS: -22 QRSD: 75 T: 6 QT: 331 QTc: 461 Interpretive Statements Sinus tachycardia No previous ECG available for comparison Electronically Signed On 02-11-2021 10:28:04 EDT by Eddy Alexis
== END 2021-02-09 20:48 | disposition left against medical advice (07) ==
LOC: ED 12:08 → 3A 19:00
PROVIDERS: ADMIT Internal Medicine; ATTEND Internal Medicine
DX: I16.0 Hypertensive urgency (principal); R65.10 Systemic inflammatory response syndrome (SIRS) of non-infectious origin without acute organ dysfunction; E87.6 Hypokalemia; E87.1 Hypo-osmolality and hyponatremia; R56.9 Unspecified convulsions; D72.829 Elevated white blood cell count, unspecified; D64.9 Anemia, unspecified; K29.70 Gastritis, unspecified, without bleeding; F12.188 Cannabis abuse with other cannabis-induced disorder; Z87.898 Personal history of other specified conditions; Z98.890 Other specified postprocedural states; Z79.899 Other long term (current) drug therapy
CPT/HCPCS: 36415; 70450; 70544; 70553; 71045; 80048; 80053; 80307; 81001; 82140; 82550; 82805; 83036; 83735; 84703; 85025; 85027; 87040; 87086; 87116; 87430; 87641; 93005; 96361; 96365; 96366; 96375; 99285; A9575; G0378; J0696; J1200; J2765; J7030; J7042; 80320; G0480

== ENCOUNTER 2021-04-26 18:14 | Emergency (ER) | payer OTHER ==
[2021-04-26 18:31] VITALS: BP 141/86
[2021-04-26] MEDS ORDERED: ONDANSETRON 4 MG ODT TAB PO STA (21:48)
--- NOTE | 2021-04-26 21:51 | Emergency Department Report ---
ED N/V/D HPI - General Chief complaint: Nausea/Vomiting/Diarrhea Stated complaint: VOMITING, FATIGUE Time Seen by Provider: 04/26/21 21:48 Source: patient Mode of arrival: Ambulatory Limitations: No Limitations - History of Present Illness Initial comments: 26-year-old male female that emerge department complaining of nausea and vomiting has been occurring off and on for the past couple days but worse this morning has suspicion for being also thinks he may have preceded the symptoms ports no hemoptysis no hematemesis hematochezia, no chest pain palpitations, MD complaint: nausea, vomiting, diarrhea, other (usual onset with menses) -: Gradual, days(s) (2) Associated Abdominal Pain: No Location: diffuse Radiation: none Severity: mild Quality: aching, dull Consistency: constant Improves with: none Worsens with: none Associated Symptoms: nausea/vomiting. denies: chest pain, cough, diaphoresis, loss of appetite, syncope, weakness - Related Data Previous Rx's Medication Instructions Recorded Last Taken Type Ondansetron [Zofran Odt] 4 mg PO Q8HR #10 tab.rapdis 02/04/21 Unknown Rx Famotidine [Pepcid] 20 mg PO BID #30 tablet 02/06/21 Unknown Rx Promethazine [Phenergan] 25 mg MN Q6HR PRN #20 supp.rect 02/06/21 Unknown Rx Hyoscyamine Subl [Levsin Sl 0.125 0.125 mg SL Q6HR PRN #20 tab 04/26/21 Unknown Rx TAB] Ketorolac [Toradol] 10 mg PO Q6H PRN #15 tablet 04/26/21 Unknown Rx Ondansetron [Zofran ODT TAB] 8 mg PO Q12HR #14 tab.rapdis 04/26/21 Unknown Rx Allergies Allergy/AdvReac Type Severity Reaction Status Date / Time No Known Allergies Allergy Verified 02/08/21 13:56 ED Review of Systems ROS: Stated complaint: VOMITING, FATIGUE Other details as noted in HPI Comment: All other systems reviewed and negative ED Past Medical Hx - Past Medical History Previous Medical History?: Yes Hx Congestive Heart Failure: No Hx Diabetes: No Hx Headaches / Migraines: Yes Hx Seizures: Yes Hx Asthma: No Hx COPD: No Additional medical history: gastritis, Anemia - Surgical History Past Surgical History?: Yes Additional Surgical History: left hand skin graft - Social History Smoking Status: Never Smoker Substance Use Type: Marijuana - Medications Home Medications: Home Medications Medication Instructions Recorded Confirmed Last Taken Type Ondansetron [Zofran Odt] 4 mg PO Q8HR #10 tab.rapdis 02/04/21 02/09/21 Unknown Rx Famotidine [Pepcid] 20 mg PO BID #30 tablet 02/06/21 02/09/21 Unknown Rx Promethazine [Phenergan] 25 mg MN Q6HR PRN #20 supp.rect 02/06/21 02/09/21 Unknown Rx Hyoscyamine Subl [Levsin Sl 0.125 0.125 mg SL Q6HR PRN #20 tab 04/26/21 Unknown Rx TAB] Ketorolac [Toradol] 10 mg PO Q6H PRN #15 tablet 04/26/21 Unknown Rx Ondansetron [Zofran ODT TAB] 8 mg PO Q12HR #14 tab.rapdis 04/26/21 Unknown Rx ED Physical Exam - General Limitations: No Limitations General appearance: alert, in no apparent distress - Head Head exam: Present: atraumatic, normocephalic - Eye Eye exam: Present: normal appearance, PERRL, EOMI - ENT ENT exam: Present: mucous membranes moist - Neck Neck exam: Present: normal inspection - Respiratory Respiratory exam: Present: normal lung sounds bilaterally. Absent: respiratory distress - Cardiovascular Cardiovascular Exam: Present: regular rate, normal rhythm. Absent: systolic murmur, diastolic murmur, rubs, gallop - GI/Abdominal GI/Abdominal exam: Present: soft, normal bowel sounds - Extremities Exam Extremities exam: Present: normal inspection - Back Exam Back exam: Present: normal inspection - Neurological Exam Neurological exam: Present: alert, oriented X3 - Psychiatric Psychiatric exam: Present: normal affect, normal mood - Skin Skin exam: Present: warm, dry, intact, normal color. Absent: rash ED Course Vital Signs 04/26/21 04/26/21 04/26/21 18:30 21:47 22:40 Temperature 98.0 F Pulse Rate 68 62 73 Respiratory 20 16 Rate Blood Pressure 141/86 O2 Sat by Pulse 99 100 99 Oximetry Critical care attestation.: If time is entered above; I have spent that time in minutes in the direct care of this critically ill patient, excluding procedure time. ED Disposition Clinical Impression: Nausea & vomiting, Diarrhea, Dysmenorrhea Disposition: - TO HOME OR SELFCARE Is pt being admited?: No Does the pt Need Aspirin: No Condition: Stable Instructions: Nausea and Vomiting, Adult, [id number], Dysmenorrhea, Diarrhea, Adult, [id number] Prescriptions: Hyoscyamine Subl [Levsin Sl 0.125 TAB] 0.125 mg SL Q6HR PRN #20 tab PRN Reason: abdominal cramps and spasms Ketorolac [Toradol] 10 mg PO Q6H PRN #15 tablet PRN Reason: Pain Ondansetron [Zofran ODT TAB] 8 mg PO Q12HR #14 tab.jackson Referrals: [facility] [Provider Group] - 3-5 Days Forms: Work/School Release Form(ED)
[2021-04-26] MEDS ORDERED: KETOROLAC 60 MG/2 ML INJ IM STA (22:15)
== END 2021-04-26 22:40 | disposition home or self-care (01) ==
LOC: ED 18:14
DX: N94.6 Dysmenorrhea, unspecified (principal); R11.2 Nausea with vomiting, unspecified; R19.7 Diarrhea, unspecified; G43.909 Migraine, unspecified, not intractable, without status migrainosus; R56.9 Unspecified convulsions; F12.10 Cannabis abuse, uncomplicated; Z98.890 Other specified postprocedural states; Z79.899 Other long term (current) drug therapy
CPT/HCPCS: 96372; 99282; J1885; Q0162